=== PATIENT | male | born 1965 | race Caucasian/White ===

== ENCOUNTER → 2025-03-27 06:48 | Outpatient (REF) | payer BC, SELFPAY | LOC: MRI 06:48 | PROVIDERS: ATTENDING PHYSICIAN Physician Assistant; FAMILY PHYSICIAN General Practice | DX: M25.511 Pain in right shoulder (principal) | CPT/HCPCS: 73221 ==

== ENCOUNTER → 2025-05-12 08:46 | Outpatient (REF) | payer BC, SELFPAY | LOC: HWRAD 08:46 | PROVIDERS: ATTENDING PHYSICIAN Orthopaedic Surgery Sports Medicine | DX: M25.511 Pain in right shoulder (principal) | CPT/HCPCS: 73200 ==